=== PATIENT | female | born 1970 | race Caucasian/White ===

== ENCOUNTER → 2024-01-08 09:22 | Outpatient (REF) | payer BC, SELFPAY | LOC: WDC 09:22 | PROVIDERS: ATTENDING PHYSICIAN Physician Assistant Medical | DX: N63.13 Unspecified lump in the right breast, lower outer quadrant (principal) | CPT/HCPCS: 76642; 77062; 77066 ==

== ENCOUNTER 2024-11-22 22:47 | Day surgery (SDC) | payer BC, SELFPAY ==
[2024-11-22 18:26] VITALS: BP 154/99
[2024-11-22 18:46] LABS: Urine Character Clear (Clear)
[2024-11-22 18:49] LABS: Hematocrit 43.2 % (37.0-47.0); Hemoglobin 15.3 g/dL (12.0-16.0); Mean Corp Hgb Conc. 35.4 g/dL (33.0-37.0); Mean Corpuscular Volume 85.5 fL (81.0-99.0); Nucleated Red Blood Cells % 0 %; Platelet Count 209 10^3/uL (130-400); Red Cell Dist. Width 12.5 % (11.5-14.5)
[2024-11-22 19:09] LABS: COVID-19 Antigen Negative (Negative)
[2024-11-22 19:15] LABS: HCG, Serum Qualitative Screen Negative
[2024-11-22 19:16] LABS: ALT (SGPT) 18 U/L (0-35); AST (SGOT) 20 U/L (14-36); Albumin 5.0 g/dl (3.5-5.0); Alkaline Phosphatase 58 U/L (38-126); Blood Urea Nitrogen 17 mg/dl (7-17); Calcium 9.9 mg/dl (8.4-10.2); Carbon Dioxide 24 mmol/L (22-30); Chloride 107 mmol/L (98-107); Glucose 106 mg/dl (70-99); Lipase 210 U/L (23-300); Potassium 3.8 mmol/L (3.5-5.1); Sodium 138 mmol/L (135-145); Total Protein 7.8 g/dl (6.3-8.2); eGFR > 60.00
--- NOTE | 2024-11-22 19:39 | ED.GENMED ---
History of Present Illness
General
Chief Complaint: Abdominal Pain
Source: patient
Exam Limitations: none
Time Seen by Provider: 11/22/24 19:30
History of Present Illness
History of Present Illness:
54yoF currently on Wegovy for weight loss and prior appendectomy presenting for evaluation of abdominal pain. Symptoms began gradually throughout the day today and are now severe. She reports pain primarily in her epigastric region that feels like
a cramping sensation. Pain radiates up into the chest region. She is also having nausea and vomited a few times. No history of similar pains in the past. She took Pepto-bismol without any relief. She is mainly concerned about her gallbladder.
She had enchiladas for dinner last night. She denies any urinary symptoms or diarrhea.
Phy Exam
Physical Exam
Physical Exam:
Appears uncomfortable, groaning in pain
General Physical Exam
General Presentation: mild distress
General Skin: warm and dry
General Habitus: normal
General Mental: alert
ENT Exam
ENT Exam: normocephalic
Cardiovascular Exam
Cardiovascular Exam: regular rate/rhythm
Pulmonary Exam
Pulmonary Exam: lungs clear, no respiratory distress, no rales, no crackles, no rhonchi and no wheezing
Gastrointestinal Exam
Gastrointestinal Exam: soft, non distended and other (+Epigastric and RUQ tenderness. Voluntary guarding with +Fraser's sign.)
Neurological Exam
Neurological Exam: alert
[place] Coma Scale
Eye Opening: Spontaneous
Verbal Response: Oriented
Motor Response: Obeys Commands
GCS Total Score: 15
Skin Exam
Skin Exam: normal color and warm/dry
Psychiatric Exam
Psychiatric Exam: normal mood/affect
Course
Orders/Labs/Results
Orders:
Orders
11/22/24 18:29
Test Result ONCE
11/22/24 18:34
Complete Blood Count/With Diff Urgent
Comprehensive Metabolic Panel Urgent
HCG, Serum Qualitative Screen Urgent
Lipase Urgent
11/22/24 18:35
COVID-19 Antigen Urgent
Source: Nasal Swab
Urine Microscopic Reflex Cult Urgent
Urine Reflex Culture from UA [Urinalysis Reflex To Culture] Urgent
Date Specimen was Collected: 11/22/24
Time Specimen was Collected: 18:29
Influenza A+B Rapid Molecular Urgent
LUIZA Source: Nasal Swab
Specimen Description:
11/22/24 19:38
Electrocardiogram (*1) Urgent
Reason for Study: Abdominal Pain
EKG- Treatment ONCE
0.9% Sodium Chloride 1000 ml [Nss] 1,000 ml IV BOLUS
HYDROmorphone [Dilaudid] 0.5 mg IV NOW STA
Ondansetron Injectable [Zofran] 4 mg IV NOW STA
US Abdomen Limited Urgent
Reason For Exam: RUQ, epigastric pain
11/22/24 19:42
Troponin I Urgent
11/22/24 20:38
HYDROmorphone [Dilaudid] 0.5 mg IV NOW STA
Ondansetron Injectable [Zofran] 4 mg IV NOW STA
11/22/24 21:00
Piperacillin/Tazo 4.5 Gram [Zosyn] 4.5 gram in 100 ml IV NOW
11/22/24 22:14
Admit/Transfer Patient As Directed
Co-Sign Provider:
Level of Care: Observation services
Assign to:: Medical/Surgical
Physician / Group: dr bryant
Diagnosis: acute cholecystitis
PRN Pain Medication Management As Directed
May give lesser potent ordered pain med per pt: Yes
preference::
Protocol:: Medication orders for pain may be administered in a
manner that supports deferring to patient preference
when the pt is:
- Requesting an ordered lesser potent pain medication.
Least to most potent pain medications are defined
as: acetaminophen < NSAID < tramadol < opioids
(morphine, oxycodone, hydromorphone).
- Requesting a lesser dose of the same medication IF
ORDERED.
- Requesting a less intrusive route of administration
if both routes are prescribed by the provider (PO <
IV).
11/22/24 22:15
Code Status As Directed
Resuscitation Status: Full Code
Abnormal Lab Results
11/22/24 11/22/24
18:34 18:35
WBC 17.1 H 10^3/uL
(4.8-10.8)
Abs Immat Gran (auto) 0.1 H 10^3/uL
(0-0.05)
Absolute Neuts (auto) 13.9 H 10^3/uL
(1.4-6.5)
Absolute Monos (auto) 1.3 H 10^3/uL
(0.1-0.6)
Neutrophils % 81.3 H %
(42.2-75.2)
Lymphocytes % 10.4 L %
(20.5-51.1)
Glucose 106 H mg/dl
(70-99)
Urine Ketones 3+ A
(Negative)
Urine Bacteria (Reflex) Few A
(Negative)
Urine Albumin (Reflex) 1+ A
(Neg - Trace)
11/22/24 18:34
11/22/24 18:34
Vital Signs
Initial and Last Documented VS:
Initial Vital Signs
Temp Pulse Resp BP Pulse Ox
98.0 F 69 20 154/99 99
11/22/24 18:26 11/22/24 18:26 11/22/24 18:26 11/22/24 18:26 11/22/24 18:26
Last Documented Vital Signs
Temp Pulse Resp BP Pulse Ox
98.0 F 66 19 144/88 100
11/22/24 18:26 11/22/24 20:51 11/22/24 20:51 11/22/24 20:51 11/22/24 20:51
MDM/Problems Addressed
Differential Diagnosis Includes:
54yoF here with severe epigastric pain that began today. Associated with n/v. She is mildly hypertensive with otherwise stable vitals. She appears uncomfortable due to pain. +Fraser's sign on abdominal exam. Differential diagnosis includes but is
not limited to: cholecystitis, biliary colic, pancreatitis, gastritis, consider ACS
Initial ED plan: Labs obtained in triage. White count is elevated at 17. Lipase and LFTs normal. Will check troponin/EKG and upper abdominal ultrasound. IV Dilaudid, Zofran, and fluid bolus for symptoms.
*Pulse Oximetry
SaO2: 99
Oxygen Mode of Delivery: Room air
Patient hypoxic: no (99%)
*EKG
Interpreted by ED Provider?: Yes
EKG Intrepretation Date: 11/22/24
Heart Rate: 61
Rate: normal
Rhythm: sinus
[place]: normal axis
QRS Pattern: normal QRS
Ischemia: no ischemia
*Critical Care Note
Total Time (30-74mins, 75-104mins- exclusive of procedures): Not Applicable
Update Note
Update Note:
Ultrasound findings consistent with acute cholecystitis. IV Zosyn ordered and patient admitted to the general surgery service.
ED Attending Note
-
Portions of this chart may have been created with voice recognition software.� Occasional wrong word or��sound alike� substitutions may have occurred due to the inherent limitations of voice recognition software.
Discharge Plan
Departure
Patient Disposition: Admit
Date of Disposition: 11/22/24
Time of Disposition: 21:09
Presentation/result/management discussed w/ accepting MD/DO: Dr. Bryant
Discharge Problem:
Acute cholecystitis
Referrals:
Tressa Wild PA [Family Provider, Family Practice]
Interventions
Interventions:
*Risk Screen - Suicide Last Done: 11/22/24 19:52
*General Assessment Last Done: 11/22/24 18:26
*Neglect/Abuse Screening Last Done: 11/22/24 19:52
*ED- Fall Risk Assessment Last Done: 11/22/24 19:52
*ED COVID-19 Vaccine History Last Done: 11/22/24 19:52
ZU-Abhsue-Rmcxjqtnhx Assessment Last Done: 11/22/24 19:52
Discharge Date and Time
Print Language: MOROCCAN
[2024-11-22 19:41] VITALS: BMI 22.2
[2024-11-22 19:41] LABS: Urine Red Blood Cell 0-2 /HPF (0-2); Urine White Cell 0-2 /HPF (0-5)
[2024-11-22] MEDS: DILAUDID 0.5 MG IV ×3 (19:42→23:35)
[2024-11-22] MEDS: ZOFRAN 4 MG IV ×3 (19:42→23:34)
[2024-11-22] MEDS: NSS 1000 IV ×2 (19:43→23:31)
[2024-11-22 20:20] LABS: Troponin I < 0.012 ng/ml
[2024-11-22 20:51] VITALS: BP 144/88
[2024-11-22] MEDS: ZOSYN 100 IV (21:07)
--- NOTE | 2024-11-22 22:19 | HPS.HSE ---
Addendum entered and electronically signed by Varun Mayorga MD 11/23/24 09:30:
Patient seen and examined.
Patient is a 54 yo F with a PMH of overweight (on Wegovy lost 80 pounds), s/p appendectomy, s/p abdominoplasty who presents with 24 hours of RIGHT-sided abdominal pain radiating to her RIGHT shoulder. Ms. Lopez states that her symptoms began
acutely yesterday morning. Symptoms progressed throughout the day and became quite severe in the evening prompting presentation to the ER. In retrospect, she does report more mild attacks of discomfort over the past several months. Episodes were
brief and short lasting. Currently she reports improvement in her pain, though continued mild soreness. Associated nausea and vomiting. She denies any jaundice, pale stools, or tea colored urine. No fevers or chills. No family history notable
for cholecystectomy.
Gen: NAD
Abd: soft, mild tenderness, negative Fraser's sign, ND, non-peritoneal, prior incisions well healed
Labs and imaging were reviewed.
Patient is a 54 yo F p/w acute cholecystitis
Natural history and pathophysiology of biliary stone disease was discussed. Anatomy was reviewed. Workup thus far including labs and imaging were reviewed. Options for management including medical management with low-fat diet versus surgical
management with cholecystectomy were considered and discussed. The pros and cons of both approaches was discussed. Specifically, we discussed persistent attacks and continued cholecystitis versus surgical risks cholecystectomy.
Plan for laparoscopic cholecystectomy with possible cholangiogram. The procedure itself, as well as the risks, benefits, and alternatives were discussed. Specifically, we discussed the risk of bleeding, infection, injury to surrounding structures
(bowel, bile ducts), CBD injury, need for open procedure. Typical postprocedure recovery was discussed. Specifically, we discussed activity restrictions and a 10 to 20% risks of fluctuations or GI function was discussed. All questions answered.
Consent signed.
-- Laparoscopic cholecystectomy with IOC
-- NPO, IVF
-- Abx: Zosyn
Original Note:
Family Physician
-
Family Physician: Tressa Wild
Chief Complaint
-
upper abd pain
History of Present Illness
54yoF currently on Wegovy for weight loss and prior [id number] yrs ago presenting for evaluation of abdominal pain. Symptoms began gradually throughout the day today and are now severe. She reports pain primarily in her epigastric region that
feels like a cramping sensation. Pain radiates up into the chest region. She is also had chills, nausea and vomited a few times. No history of similar pains in the past. She took Pepto-bismol without any relief. She had enchiladas for dinner
last night. She denies any urinary symptoms or diarrhea.
ED treatments:
abd us:Sonographic findings are highly suspicious for acute cholecystitis with cholelithiasis, gallbladder wall thickening, pericholecystic fluid, and a positive sonographic Fraser's sign
WBC 17.1--> abx initiated
Pain controlled with 2 doses dilaudid iv
Medical History
Past Medical History
Past Medical History: Reports None (denies)
Additional Past Medical History:
on wegovy x 1 yrs for weight loss
Past Surgical History: Reports Appendectomy (20 yrs ago), and Other (tummy tuck)
Additional Past Surgical History:
breast augmentation
Social History
Tobacco: Non-smoker
Alcohol: Occasional
Drug: None
Personal:
Employment: Employed
Family History
Family History: Not pertinent
Allergies / Home Medications
Allergies reflects when Allergies were last updated in [facility].
Home Medications with original date entered in [facility]
Allergy/Medication List:
Allergies
Allergy/AdvReac Type Severity Reaction Status Date / Time
No Known Allergies Allergy Unverified 11/22/24 18:26
Progesterone 100mg po daily
wegovy 2.4mg sq mondays
Review of Systems
-
History Source: Patient
Constitutional: Reports Chills
EENT: Reports No Symptoms
Respiratory: Reports No Symptoms
Cardiac: Reports No Symptoms
Abdomen/GI: Reports Abdominal Pain (Upper abd to chest with some radiation to back), Nausea and Vomiting
: Reports No Symptoms
Musculoskeletal: Reports No Symptoms
Skin: Reports No Symptoms
Neurological: Reports No Symptoms
Endocrine: Reports No Symptoms
Hematologic/Lymphatic: Reports No Symptoms
Psych: Reports No Symptoms
Physical Exam
Vital Signs
Vital Signs
Temp Pulse Resp BP Pulse Ox
98.0 F 66 19 144/88 100
11/22/24 18:26 11/22/24 20:51 11/22/24 20:51 11/22/24 20:51 11/22/24 20:51
Physical Exam
General: Well Developed, Well Nourished, No Apparent Distress and Comfortable
HEENT: NormoCephalic, Anicteric, Moist mucous membranes and Atraumatic
Respiratory: Clear and Non Labored Respirations
Cardiac: S1/S2 and Regular Rhythm
Breast: Deferred by me
GI: Soft, Non Distended, Normal Bowel Sounds and Tender (upper abd tenderness but improved after dilaudid. )
Rectal: Deferred by Provider
Genito-urinary: Deferred by me
Musculoskeletal: No Clubbing and No Cyanosis
Skin: Warm and Dry
Neuro: Awake, Alert, Oriented, AO x 3 and No Motor Deficits
Hematologic/Lymphatic: No Lymphadenopathy
Laboratory Results
-
11/22/24 18:34
11/22/24 18:34
Laboratory Results
Total Bilirubin 0.6 mg/dl (0.2-1.3) 11/22/24 18:34
AST 20 U/L (14-36) 11/22/24 18:34
ALT 18 U/L (0-35) 11/22/24 18:34
Alkaline Phosphatase 58 U/L (38-126) 11/22/24 18:34
Troponin I < 0.012 ng/ml 11/22/24 19:42
Lipase 210 U/L (23-300) 11/22/24 18:34
Impression/Plan
-
IMPRESSION:
acute cholecystitis
PLAN:
Admit to service of Dr Dimas
med surg obs
#acute cholecystitis
-NPO x meds after midnight
-WBC 17.1 repeat in am
-cont zosyn q6h
-IVF Nss@100
-pain control: dilaudid iv, tylenol
DVT proph: scd
Full code
[2024-11-22 23:26] VITALS: BP 140/85; BMI 23.2
[2024-11-23] VITALS (10 sets, daily range): BP systolic 108–129; BP diastolic 72–81
--- NOTE | 2024-11-23 00:07 | PTCARENOTE ---
Received pt from ED @ 9650. Pt ambulatory in room, AAOx3. Medicated for abd pain and nausea. Oriented to room, call louis and plan of care.
[2024-11-23] MEDS: ZOSYN 50 IV ×3 (03:53→16:40)
[2024-11-23] MEDS: DILAUDID 0.5 MG IV ×2 (08:00→17:33)
[2024-11-23] MEDS: NSS 1000 IV (08:42)
--- NOTE | 2024-11-23 08:54 | CON.GS ---
Consultation
-
Performing Provider: Varun Jones MD
Reason for Consultation: Acute cholecystitis
Medical History
-
Chief Complaint: upper abdomoinal pain from saturday night.
History of Present Illness:
patient arrived to the ER on 11/22 with epigastric pain started on Saturday night after having enchiladas, with gripping in nature, progressively increased, radiated towards chest, and shoulder. She took Pepto- Bismol which didn't relieve her pain,
associated with fever, chills, nausea, bilious vomiting. Her last bowel movement on Saturday. She is not currently experiencing jaundice, pale stools. Her last dosage of Wegovy for her overweight on 11/16.
- Currently her vomiting relieved by ondansetron 4 mg iv overnight and pt feels mild discomfort at lower abdomen.
Past Medical History
Past Medical History: Other (taking Wegovy for weight loss, last dosage pt received was on 11/16/24. )
Past Surgical History: Appendectomy (20 yrs ago), and Other (tummy tuck, right knee arthroplasty. )
Social History
Tobacco: Non-Smoker
Alcohol: Occasional
Personal:
Employment: Employed
Allergies / Home Medications
Allergy/AdvReac Type Severity Reaction Status Date / Time
No Known Allergies Allergy Unverified 11/22/24 18:26
Review of Systems
-
History Source: Patient
Constitutional: Fever and Chills
Abdomen/GI: Nausea (which is improved after ondansetron in ED), Vomiting (Billious) and Pain (started on the epigastric region radiates towards chest, right side shoulder. )
: No Symptoms
A 10 point review of systems was completed, and was negative except as per HPI.
Physical Exam
Vital Signs
Temp Pulse Resp BP Pulse Ox
99.0 F 71 16 108/72 99
11/23/24 07:04 11/23/24 07:04 11/23/24 07:04 11/23/24 07:04 11/23/24 07:04
11/22/24 11/23/24 11/24/24
06:59 06:59 06:59
Actual Weight 71.242 kg
Body Mass Index (BMI) 23.2
Lab Results
11/22/24 18:34
11/22/24 18:34
WBC 17.1 10^3/uL (4.8-10.8) H 11/22/24 18:34
Hgb 15.3 g/dL (12.0-16.0) 11/22/24 18:34
Hct 43.2 % (37.0-47.0) 11/22/24 18:34
Plt Count 209 10^3/uL (130-400) 11/22/24 18:34
Abs Immat Gran (auto) 0.1 10^3/uL (0-0.05) H 11/22/24 18:34
Neutrophils % 81.3 % (42.2-75.2) H 11/22/24 18:34
Physical Exam
General: No Apparent Distress
HEENT: Anicteric and Moist Mucous Membranes
Respiratory: Clear
Cardiac: S1/S2 and Regular Rhythm
GI: Soft, Non Distended, Tender (umbilical, right upper quadrant ) and Other (non guarding, non rigid. )
Skin: Warm
Neuro: AO x 3
Hematologic/Lymphatic: No Lymphadenopathy
Psych: Calm
Assessment / Plan
-
54yr F currently on Wegovy for weight loss and prior [id number] yrs ago presenting for evaluation of abdominal pain.
# Acute cholecystitis:
-Tmax= 99.8
-WBC 17.1--> currently on Zosyn 6 hrly.
On 11/22 USG Abdomen:
- highly suspicious for acute cholecystitis with cholelithiasis, gallbladder wall thickening, pericholecystic fluid, and a positive sonographic Fraser's sign
- Pain controlled with 2 doses dilaudid iv, acetaminophen 650 mg
- Antiemetics- Ondansetron 4 mg iv
- NPO with IVF NS 1000ml @ 100 ml/ hr/ IV
- Plan for elective cholecystectomy for today.
--- NOTE | 2024-11-23 09:30 | W.SUR.PREOP ---
Pre-Operative Surgical Note
-
I have examined this patient prior to the performance of the scheduled procedure.
The patient's condition is unchanged from the time of the current History and
Physical and the patient is able to undergo the scheduled procedure.
--- NOTE | 2024-11-23 13:33 | W.IMMPOSTOP ---
Surgical Immed Post Op Note
-
Primary Surgeon: Mukesh
Assisting Surgeon: SHRUTHI Haile
Pre-op Diagnosis: Acute cholecystitis
Post-op Diagnosis: Acute cholecystitis
Procedure Performed: Laparoscopic cholecystectomy
Anesthesia Type: General
Specimen / Cultures:
1. Gallbladder
Estimated Blood Loss: 11 cc
Complications: None
Operative Findings:
1. Severely inflamed GB, bile stained tissues, thickened wall and edema
2. Critical view
3. IOC negative
4. Duct clips and 0 PDS Endoloop, artery clips
--- NOTE | 2024-11-23 15:05 | PTCARENOTE ---
Patient received from PACU AAOx3, no c/o pain at present. Five lap sites with surgical glue. Spouse and son at bedside. Patient tolerating clear liquids and is ordering lunch now.
--- NOTE | 2024-11-23 15:52 | CM ---
CM reviewed chart, received TT from UR patient switched to PSR status. Patient seen bedside, initial assessment completed. Patient resides with her and son in a multiple story home, four steps to enter. Patient is independent with
ADLs/IADLs, denies use of DME. Patient reports home PT in past (3 years ago), hx outpatient therapy, declines SNF. Patient PCP Tressa Wild, pharmacy [facility], confirms prescription coverage. Patient denies insecurities at home. Consult
received for Advance Directive, patient declining. Patient denies needs upon d/c, confirms will assist with care at home if needed. CM will continue to follow for all discharge planning needs.
Plan; home with family, no needs.
--- NOTE | 2024-11-23 16:28 | W.DS.TRANS ---
DC Summary - Family Resource Coordinator
-
Discharge Instructions:
Discharge Diagnosis/Procedures Acute cholecystitis status post laparoscopic
cholecystectomy
Diet As tolerated,Low Fat,Regular
Additional Diets Switch to a low fat diet if you have loose
stools after surgery
Activity No strenuous activity
Additional Activity Do not lift over 20lbs for the next 2-3 weeks
Driving Restrictions Wait until comfortable twisting/off narcotics
Bathing Restrictions OK to Shower
Wound Care Allow the glue to flake off your incisions on
its own over the next 2-3 weeks. Avoid swimming
or soaking in tubs/pools during that time.
Instructions:
Stand-Alone Forms:
Changes to Home Medications: No
Discharge Medications:
DC Medications w/original date entered in [facility]
acetaminophen 325 mg tablet 650 mg (2 x 325 mg) PO Q4HPRN PRN mild pain #1 tab 11/23/24
ibuprofen 200 mg tablet 400 - 600 mg (2 - 3 x 200 mg) PO Q6HPRN PRN moderate pain #1 tab 11/23/24
oxycodone 5 mg tablet 5 mg PO Q4HPRN PRN breakthrough/severe pain #8 tabs 11/23/24
Home Medication Changes
Pending Results: No
--- NOTE | 2024-11-23 16:48 | PTCARENOTE ---
Patient tolerated regular diet. No c/o pain. Patient eager to go home today.
--- NOTE | 2024-11-23 17:40 | PTCARENOTE ---
Patient voided without difficulty and ambulated in [place] with supervision.
== END 2024-11-23 18:10 | disposition home or self-care (01) ==
LOC: PACU 22:47
PROVIDERS: Physician Assistant; EMERGENCY PHYSICIAN Emergency Medicine; FAMILY PHYSICIAN Physician Assistant Medical
DX: K80.00 Calculus of gallbladder with acute cholecystitis without obstruction (principal)
CPT/HCPCS: 47563; 74300; 76000; 76705; 80053; 81003; 81015; 83690; 84484; 84703; 85025; 87502; 87811; 88304; 93005; 96365; 96374; 96375; 96376; 99285; A4300; G0378